=== PATIENT | male | born 2000 | race Caucasian/White ===

== ENCOUNTER → 2019-12-20 17:00 | Outpatient (BNVA) | payer SELFPAY | PROVIDERS: Family Provider Pediatrics; PCP Pediatrics; Visit Provider Nurse Practitioner Family | DX: R50.9 Fever, unspecified (principal) | CPT/HCPCS: 87635 ==

== ENCOUNTER → 2023-10-20 13:21 | Outpatient (BNVA) | payer OTHER, SELFPAY | PROVIDERS: Family Provider Pediatrics; PCP Family Medicine; Visit Provider Nurse Practitioner Family | DX: S62.663A Nondisplaced fracture of distal phalanx of left middle finger, initial encounter for closed fracture; W23.0XXA Caught, crushed, jammed, or pinched between moving objects, initial encounter; M79.642 Pain in left hand | CPT/HCPCS: 73130 ==